=== PATIENT | male | born 1990 | race Caucasian/White ===

== ENCOUNTER 2019-07-23 11:09 | Emergency (ER) | payer OTHER ==
[~2019-07-23] VITALS: Ht 190.5 cm; Wt 108.9 kg
[2019-07-24 05:08] LABS: HCV ANTIBODY <0.1 (0.0-0.9); HIV SCREEN 4TH GENERATION WRFX Non Reactive (Non Reactive)
== END 2019-07-23 12:08 | disposition home or self-care (01) ==
LOC: ER 11:09
PROVIDERS: Physician Assistant
DX: S61.032A Puncture wound without foreign body of left thumb without damage to nail, initial encounter (principal); W25.XXXA Contact with sharp glass, initial encounter
CPT/HCPCS: 84460; 86317; 86803; 87389; 99282

== ENCOUNTER 2021-03-11 17:40 | Emergency (ER) | payer BC, OTHER ==
[~2021-03-11] VITALS: Ht 190.5 cm; Wt 108.9 kg
[2021-03-11 18:33] LABS: BASOPHILS ABSOLUTE AUTO 0.04 K/mm3 (0.00-0.23); BASOPHILS PERCENT AUTO 1 % (0-2); EOSINOPHILS ABSOLUTE AUTO 0.02 K/mm3 (0.00-0.68); EOSINOPHILS PERCENT AUTO 0 % (0-6); Hematocrit 43.6 % (37.0-53.0); Hemoglobin 15.4 g/dL (13.5-17.5); IMMATURE GRAN ABSOLUTE AUTO 0.03 K/mm3 (0.00-0.10); IMMATURE GRAN PERCENT AUTO 0 % (0-1); LYMPHOCYTES ABSOLUTE AUTO 1.76 K/mm3 (0.84-5.20); LYMPHOCYTES PERCENT AUTO 21 % (21-46); MONOCYTES ABSOLUTE AUTO 0.52 K/mm3 (0.16-1.47); MONOCYTES PERCENT AUTO 6 % (4-13); Mean Corpuscular HGB Conc 35.3 g/dL (31.5-36.5); Mean Corpuscular Volume 88 fL (80-100); Mean Platelet Volume 10.2 fL (9.1-12.4); NEUTROPHILS ABSOLUTE AUTO 5.88 K/mm3 (1.96-9.15); NEUTROPHILS PERCENT AUTO 71 % (41-73); Platelet Count 169 K/mm3 (150-400); RDW Coefficient Variation 11.9 % (11.7-14.2); Red Blood Cell Count 4.96 M/mm3 (4.30-5.90); White Blood Cell Count 8.25 K/mm3 (4.00-11.30)
[2021-03-11 18:45] LABS: Source, Urine Clean Catch
[2021-03-11 18:55] LABS: Bilirubin, Urine Neg (Neg); Blood, Urine 5+ (Neg); Color, Urine Yellow (P-Yellow); Glucose Qualitative, Urine Neg (Neg); Ketones, Urine 1+ (Neg); Leukocyte Esterase, Urine 1+ (Neg); Nitrite, Urine Neg (Neg); Protein, Urine 2+ (Neg); Urobilinogen, Urine 1+ (Normal)
[2021-03-11 18:57] LABS: Alanine Aminotransfer (ALT/SGP 24 U/L (12-78); Albumin, Blood 5.1 g/dL (3.4-5.0); Albumin/Globulin Ratio 1.6 (0.8-1.8); Alk Phos 64 U/L (50-136); Anion Gap 10 mmol/L (6-16); Aspartate Aminotrans (AST/SGOT 14 U/L (12-37); Bilirubin, Total 0.8 mg/dL (0.1-1.0); Blood Urea Nitrogen 19 mg/dL (8-24); Bun/Creatinine Ratio 15.3 (12.0-20.0); CO2, Blood 23 mmol/L (21-32); Calcium, Blood 10.3 mg/dL (8.5-10.1); Chloride, Blood 110 mmol/L (98-108); Creatinine, Blood 1.24 mg/dL (0.60-1.20); Globulin, Blood 3.2 g/dL (2.2-4.0); Glomerular Filtration Rate >60 (60-); Glucose, Blood 108 mg/dL (70-99); Potassium, Blood 3.2 mmol/L (3.5-5.5); Sodium, Blood 143 mmol/L (136-145); Total Protein, Blood 8.3 g/dL (6.4-8.2)
[2021-03-11 19:06] LABS: Appearance, Urine Hazy (Clear)
[2021-03-11 19:11] LABS: Bacteria Few /hpf; Mucus Light (0-Heavy); Red Blood Cells, Urine 50-100 /hpf (0-2); Squamous Epithelial Cells Rare /hpf (Few)
[2021-03-11] MEDS ORDERED: CEPH500 PO (20:15)
== END 2021-03-11 20:34 | disposition home or self-care (01) ==
LOC: ER 17:40
PROVIDERS: Physician Assistant
DX: N13.2 Hydronephrosis with renal and ureteral calculous obstruction (principal)
CPT/HCPCS: 36415; 76770; 80053; 81001; 85025; 87086; 96374; 99284-25; A9270; J1885

== ENCOUNTER → 2021-09-07 | Outpatient (CLI) | payer BC ==
[~2021-09-07] MED LIST: CEPH500 PO
== END | disposition home or self-care (01) ==
LOC: LAB SHORT 07:34
DX: D22.5 Melanocytic nevi of trunk (principal); L81.9 Disorder of pigmentation, unspecified
CPT/HCPCS: 88305

== ENCOUNTER → 2021-11-16 | Outpatient (CLI) | payer BC | END | disposition home or self-care (01) | LOC: LAB SHORT 07:19 | DX: L72.9 Follicular cyst of the skin and subcutaneous tissue, unspecified (principal); D22.72 Melanocytic nevi of left lower limb, including hip | CPT/HCPCS: 88305; 88312 ==